=== PATIENT | female | born 1960 | race Hispanic/Latino ===

== ENCOUNTER 2016-12-15 13:33 | Emergency (ER) | payer BC ==
[2016-12-15] MEDS ORDERED: TDAP Vaccine 0.5 mL Syr IM ONE (13:58)
--- NOTE | 2016-12-15 14:00 | ED PDOC ---
Arrival/HPI - General Historian: Patient - History of Present Illness Time/Duration: Prior to Arrival Symptom Onset: Sudden Symptom Course: Unchanged Quality: Stabbing Severity Level: 4 Activities at Onset: Other (walking) Context: Walking - General Chief Complaint: Abnormal Skin Integrity Time Seen by Provider: 12/15/16 13:46 - History of Present Illness Narrative History of Present Illness (Text): 12/15/16 14:08 56yo F with PMHx of HTN and lymphedema here for evaluation of right lower leg trauma. Patient was cleaning the house this morning when she hit her right leg against a wooden side table. She noted a laceration at the site and came into the ER for further evaluation. Patient states that she is not allergic to tetanus but gets some skin hardening and low grade fever after getting a shot. She is not up to date with her tetanus. She denies any other symptoms currently. (Eligio Lopez) Past Medical History - Provider Review Nursing Documentation Reviewed: Yes - Tetanus Immunization Tetanus Immunization: >10 years Ago - Reproductive Menopause: Yes - Cardiac Hx Cardiac Disorders: Yes Hx Hypertension: Yes Other/Comment: Lymphedema - Pulmonary Hx Respiratory Disorders: No - Neurological Hx Neurological Disorder: No - HEENT Hx HEENT Disorder: Yes (wears glasses) - Renal Hx Renal Disorder: No - Endocrine/Metabolic Hx Endocrine Disorders: No - Hematological/Oncological Hx Blood Disorders: No - Integumentary Hx Dermatological Disorder: No - Musculoskeletal/Rheumatological Hx Musculoskeletal Disorders: Yes Hx Arthritis: Yes (knees) - Gastrointestinal Hx Gastrointestinal Disorders: No - Genitourinary/Gynecological Hx Genitourinary Disorders: No - Psychiatric Hx Psychophysiologic Disorder: No Hx Substance Use: No - Surgical History Hx Gastric Bypass Surgery: Yes (2003) Hx Tonsillectomy: Yes (1977) Family/Social History - Physician Review Nursing Documentation Reviewed: Yes Family/Social History: No Known Family HX Smoking Status: Former Smoker Hx Alcohol Use: Yes Frequency of alcohol use: Socially Hx Substance Use: No Allergies/Home Meds Allergies/Adverse Reactions: Allergies tetanus and diphtheria toxoids Adverse Reaction (Mild, Verified 12/15/16 14:01) Arm gets hard, low grade fever Home Medications: Home Meds Medication Instructions Recorded Confirmed Cetirizine HCl [Zyrtec Allergy] 10 mg PO DAILY 12/15/16 12/15/16 Losartan [Cozaar] 100 mg PO DAILY 12/15/16 12/15/16 Review of Systems - Physician Review All systems were reviewed & negative as marked: Yes - Review of Systems Constitutional: Normal. absent: Fatigue, Fevers Eyes: Normal Respiratory: Normal. absent: SOB, Cough Cardiovascular: absent: Chest Pain, Calf Pain, CABRERA Musculoskeletal: Other (Bilateral lower extremity edema) Skin: Laceration (right lower extremity laceration) Neurological: absent: Dizziness Endocrine: absent: Diaphoresis Physical Exam Vital Signs Reviewed: Yes Temperature: Afebrile Blood Pressure: Hypertensive Pulse: Regular Respiratory Rate: Normal Appearance: Positive for: Well-Appearing, Non-Toxic, Comfortable, Uncomfortable Pain Distress: Mild Mental Status: Positive for: Alert and Oriented X 3 - Systems Exam Head: Present: Atraumatic, Normocephalic Extroacular Muscles: Present: EOMI Mouth: Present: Moist Mucous Membranes Respiratory/Chest: Present: Good Air Exchange. No: Respiratory Distress, Accessory Muscle Use Cardiovascular: Present: Normal S1, S2 Abdomen: No: Tenderness, Distention, Rebound, Guarding Lower Extremity: Present: Other (Right lower extremity laceration. ) Skin: Present: Laceration (to right lower anterior mayes) Psychiatric: Present: Alert, Oriented x 3 Vital Signs Temp Pulse Resp BP Pulse Ox 12/15/16 15:53 97.9 F 88 18 140/84 100 12/15/16 13:40 99 F 63 16 161/95 H 99 Medical Decision Making ED Course and Treatment: Patient Seen With Resident: In agreement with resident note which contains more details about the patient. Patient was seen and evaluated with resident. Came up with plan and treatment together. A 56 year old female with right lower leg laceration. Additional HPI as noted by resident. On physical exam, patient has laceration to right lower anterior mayes. Will suture laceration and discharge patient with ibuprofen. Patient will need follow up for suture removal. (Chhaya Hernandez) 12/15/16 14:18 56yo F with Right lower extremity laceration. - Will suture laceration - Home on pain meds - follow up in clinic for suture removal 12/15/16 14:[address] 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 Dr. Silva would like to come into evaluate the patient and place repair the laceration. Patient notified and she agrees with the plan. 12/15/16 15:35 Dr. Silva at bedside. Repaired area with mattress and interrupted sutures. Skin edges well approximated. Patient tolerated procedure well. 12/15/16 15:36 Plan for discharge with ibuprofen OTC for pain (Eligio Lopez) - Medication Orders Current Medication Orders: Discontinued Medications Lidocaine HCl (Lidocaine 1% (20ml)) 1 ml IJ STAT STA Stop: 12/15/16 14:06 Last Admin: 12/15/16 15:26 Dose: 5 ml Tetanus/Reduced Diphtheria/Acell Pertussis (Boostrix Vaccine Inj) 0.5 ml IM .ONCE ONE Stop: 12/15/16 13:59 Last Admin: 12/15/16 14:20 Dose: 0.5 ml - PA / PHARMACY TECHNICIAN / Resident Statement / has reviewed & agrees with the documentation as recorded. / has examined the patient and agrees with the treatment plan. Disposition/Present on Arrival - Present on Arrival Any Indicators Present on Arrival: No History of DVT/PE: No History of Uncontrolled Diabetes: No Urinary Catheter: No History of Decub. Ulcer: No History Surgical Site Infection Following: None - Disposition Have Diagnosis and Disposition been Completed?: Yes Disposition Time: 15:37 Patient Plan: Discharge - Disposition Diagnosis: Laceration Disposition: HOME/ ROUTINE Condition: GOOD Discharge Instructions (ExitCare): Care For Your Stitches (ED) Additional Instructions: 1. Follow up with Dr. Silva within 5 days. 2. Use OTC ibuprofen as directed as needed for pain control 3. Keep area clean and dry. You may shower in 48 hours. Keep area clean and dry. 4. Return to the ER with any concerning symptoms. Referrals: Deshaun Silva MD [Staff Provider] - Follow up with primary Forms: [employer] (Tamazight) Laceration - Laceration Repair No standard instances Wound Length (In cm): 2.76 in (with skin tear) Description Of Wound: Clean, Irregular Wound Cleansed With: Sterile Saline Anesthesia: Lidocaine 1% Wound Examination: Irrigated With Saline, No FB With Wound Exploration Wound Closure: Suture Suture Technique And Material Used: Interrupted, Mattress, Nylon Wound Complexity: Intermediate
[2016-12-15] MEDS ORDERED: Lidocaine 1% Inj (20ml) IJ STA (14:05)
[2016-12-15 15:53] VITALS: BP 140/84; PULSE 88; RESP 18; TEMP 97.9; O2SAT 100
== END 2016-12-15 15:58 | disposition home or self-care (01) ==
LOC: ED 13:33
DX: S81.811A Laceration without foreign body, right lower leg, initial encounter (principal); W22.03XA Walked into furniture, initial encounter; Y93.E9 Activity, other interior property and clothing maintenance; Y92.009 Unspecified place in unspecified non-institutional (private) residence as the place of occurrence of the external cause; Z23 Encounter for immunization

== ENCOUNTER 2017-09-25 11:12 | Day surgery (SDC) | payer BC ==
[2017-09-19 12:06] VITALS: BMI 39.6
[2017-09-25] MEDS ORDERED: Propofol 10 mg/ml Inj (20 ML) ONE (13:11)
[2017-09-25 13:50] VITALS: RESP 12; TEMP 98
[2017-09-25] MEDS ORDERED: Sodium Chloride 0.9% 1,000 ML IV SCH (14:00)
[2017-09-25 14:17] VITALS: O2SAT 98
[2017-09-25 15:23] VITALS: BP 125/688; PULSE 57
== END 2017-09-25 14:23 | disposition home or self-care (01) ==
LOC: ENDO 11:12
PROVIDERS: ATTEND Internal Medicine
DX: Z12.11 Encounter for screening for malignant neoplasm of colon (principal); K55.20 Angiodysplasia of colon without hemorrhage; K64.8 Other hemorrhoids; Z80.0 Family history of malignant neoplasm of digestive organs
CPT/HCPCS: 45378; J2001; J2704; J7040 ×2